=== PATIENT | female | born 1985 | race Caucasian/White ===

== ENCOUNTER 2020-06-16 09:35 | Outpatient (REF) | payer MEDICAID, SELFPAY ==
[2020-06-17 04:00] LABS: CT PCR NOT DETECTED (Not Detect.); NG PCR NOT DETECTED (Not Detect.)
[2020-06-19 15:11] LABS: HPV mRNA E6/E7 rflx Not Detected (Not Detected)
== END 2020-06-16 09:36 | disposition home or self-care (01) ==
LOC: HO.LAB 09:35
PROVIDERS: PCP Student in an Organized Health Care Education/Training Program; Visit Provider Obstetrics & Gynecology
DX: Z01.419 Encounter for gynecological examination (general) (routine) without abnormal findings (principal); R10.2 Pelvic and perineal pain; F31.9 Bipolar disorder, unspecified; F41.9 Anxiety disorder, unspecified; F17.210 Nicotine dependence, cigarettes, uncomplicated
CPT/HCPCS: 87491; 87591; 87624; 88142

== ENCOUNTER 2020-07-01 10:47 | Outpatient (REF) | payer MEDICAID, SELFPAY ==
--- NOTE | ~2020-07-01 | US_ITS ---
EXAMINATION: PELVIC ULTRASOUND CLINICAL INFORMATION: Pelvic and perineal pain COMPARISON: Previous pelvic ultrasound most recent November 2013 TECHNIQUE: Transabdominal and transvaginal pelvic ultrasound was performed. Transvaginal exam was performed for better visualization of the uterus and ovaries. FINDINGS: The uterus is retroverted and measures 4.5 x 2.3 x 3.3 cm in dimension. No focal uterine lesion is seen. Endometrial thickness is normal measuring 0.2 cm. The ovaries are normal-appearing. The right ovary measures 3.1 x 2.1 x 2.1 cm. The left ovary measures 2.3 x 1.9 x 2.8 cm. There is no fluid in the pelvis. US/US pelvic complete IMPRESSION: Normal pelvic ultrasound.
--- NOTE | ~2020-07-01 | US_ITS ---
EXAMINATION: PELVIC ULTRASOUND CLINICAL INFORMATION: Pelvic and perineal pain COMPARISON: Previous pelvic ultrasound most recent November 2013 TECHNIQUE: Transabdominal and transvaginal pelvic ultrasound was performed. Transvaginal exam was performed for better visualization of the uterus and ovaries. FINDINGS: The uterus is retroverted and measures 4.5 x 2.3 x 3.3 cm in dimension. No focal uterine lesion is seen. Endometrial thickness is normal measuring 0.2 cm. The ovaries are normal-appearing. The right ovary measures 3.1 x 2.1 x 2.1 cm. The left ovary measures 2.3 x 1.9 x 2.8 cm. There is no fluid in the pelvis. US/US transvaginal IMPRESSION: Normal pelvic ultrasound.
== END 2020-07-01 10:48 | disposition home or self-care (01) ==
LOC: HO.US 10:47
PROVIDERS: Visit Provider Obstetrics & Gynecology
DX: R10.2 Pelvic and perineal pain (principal)
CPT/HCPCS: 76830; 76856

== ENCOUNTER → 2020-07-20 11:58 | Outpatient (BNVA) | payer MEDICAID, SELFPAY | PROVIDERS: PCP Student in an Organized Health Care Education/Training Program; Visit Provider Obstetrics & Gynecology ==

== ENCOUNTER → 2020-12-22 15:03 | Outpatient (BNVA) | payer MEDICAID, SELFPAY | PROVIDERS: Visit Provider Obstetrics & Gynecology | DX: Z30.9 Encounter for contraceptive management, unspecified (principal); R10.2 Pelvic and perineal pain | CPT/HCPCS: 99212 ==